=== PATIENT | female | born 1990 | race Caucasian/White ===

== ENCOUNTER 2017-08-30 19:23 | Outpatient (CLI) | END 2017-08-30 19:36 | disposition short-term general hospital (02) | LOC: AMBL 19:23 | PROVIDERS: ATTEND Family Medicine | DX: I47.1 Supraventricular tachycardia (principal); R07.9 Chest pain, unspecified; R06.4 Hyperventilation ==

== ENCOUNTER 2017-10-06 11:18 | Outpatient (CLI) | END 2017-10-06 11:33 | disposition short-term general hospital (02) | LOC: AMBL 11:18 | PROVIDERS: ATTEND Emergency Medicine | DX: R07.89 Other chest pain (principal); R00.2 Palpitations; R06.4 Hyperventilation; R00.0 Tachycardia, unspecified; F41.9 Anxiety disorder, unspecified; Z98.890 Other specified postprocedural states ==